=== PATIENT | female | born 1995 | race Two or more races ===

== ENCOUNTER 2020-05-22 23:34 | Emergency (ER) | payer BC ==
[~2020-05-22] VITALS: Ht 167.6 cm; Wt 81.4 kg
[~2020-05-22 23:34] MED LIST: OMEP40CA42 PO; PROP20TA PO
[2020-05-23] MEDS ORDERED: ALBUTEROL SULFATE 2.5 MG/3 ML NPPB ONE (00:30)
[2020-05-23] MEDS ORDERED: BENZONATATE 100 MG CAPSULE PO ONE (00:30)
[2020-05-23] MEDS ORDERED: BENZONATATE 100 MG CAPSULE ONE (00:30)
[2020-05-23] MEDS ORDERED: ALBUTEROL SULFATE 2.5 MG/3 ML ONE (00:40)
[2020-05-23 01:43] VITALS: BP 103/65
== END 2020-05-23 01:47 | disposition home or self-care (01) ==
LOC: ED 05-23 00:28
DX: U07.1 COVID-19 (principal); J12.9 Viral pneumonia, unspecified; R00.0 Tachycardia, unspecified; R05 Cough; R06.02 Shortness of breath
CPT/HCPCS: 71045; 87635; 93005; 94640; 99285; J7512; J7613

== ENCOUNTER 2020-06-14 02:39 | Emergency (ER) | payer BC ==
[~2020-06-14] VITALS: Ht 167.6 cm; Wt 82.0 kg
[2020-06-14 03:36] LABS: BASOPHILS % (AUTO) 1 % (0-1); EOSINOPHILS % (AUTO) 3 % (1-7); LYMPHOCYTES % (AUTO) 46 % (22-44); MEAN CORPUSCULAR HEMOGLOBIN 22.9 pg (27.0-34.8); MEAN CORPUSCULAR HGB CONC 31.6 g/dL (32.4-35.8); MEAN PLATELET VOLUME 7.7 fL (7.4-10.4); MONOCYTES % (AUTO) 7 % (2-9); NEUTROPHILS % (AUTO) 44 % (42-75); PLATELET COUNT 343 x10^3/uL (130-400); RED BLOOD COUNT 4.16 x10^6/uL (3.82-5.3); RED CELL DISTRIBUTION WIDTH 18.7 % (9.6-15.2)
[2020-06-14 03:45] LABS: ALANINE AMINOTRANSFERASE 72 U/L (12-78); ALBUMIN 3.6 g/dL (3.4-5.0); ANION GAP 6 mmol/L (5-15); CALCIUM 9.4 mg/dL (8.5-10.1); CHLORIDE 110 mmol/L (98-107); CREATININE 0.79 mg/dL (0.55-1.02)
--- NOTE | 2020-06-14 03:46 | NUR ---
Pt has a chief complaint of "red spots" in her stool and "bright red blood when I wipe." Pt denies history of hemorrhoids, complains only of rectal pain when she goes to the bathroom, and has new onset abd pain as of 2200 last night. Pt tender in all quadrants upon palpation. Pt connected to BP and O2 monitors.
[2020-06-14 03:49] LABS: ALKALINE PHOSPHATASE 73 U/L (45-117); BILIRUBIN,TOTAL 0.5 mg/dL (0.2-1.0); TOTAL PROTEIN 7.8 g/dL (6.4-8.2)
[2020-06-14 03:54] LABS: MICROSCOPIC AUTO
[2020-06-14 04:07] LABS: MD SCAN
--- NOTE | 2020-06-14 04:41 | NUR ---
This RN at bedside to witness rectal exam.
[2020-06-14 05:26] VITALS: BP 101/50
== END 2020-06-14 05:29 | disposition home or self-care (01) ==
LOC: ED 04:04
DX: K62.5 Hemorrhage of anus and rectum (principal); R10.84 Generalized abdominal pain
CPT/HCPCS: 36415; 80053; 81001; 83690; 84703; 85025; 87086; 99283